=== PATIENT | male | born 1975 | race Caucasian/White ===

== ENCOUNTER 2017-05-02 07:50 | Day surgery (SDC) | payer OTHER ==
[~2017-05-02] VITALS: Ht 188 cm; Wt 88.5 kg
[2017-05-02] VITALS (11 sets, daily range): BP systolic 111–145; BP diastolic 79–93
[~2017-05-02 07:50] MED LIST: FLONASE ALLERG9.9 ML NASAL; TYLENOL EXTRA500 MG ORAL; ZYRTEC-D TABLE1 EACH ORAL
[2017-05-02] MEDS ORDERED: fentaNYL 100 mcg/2 mL IV ONE (07:51)
[2017-05-02] MEDS ORDERED: NS Irrig 2000ml IRRIG ONE (07:51)
[2017-05-02] MEDS ORDERED: Propofol 200mg/20ml IV ONE (07:51)
[2017-05-02] MEDS ORDERED: Midazolam 2mg/2ml Inj ONE (07:51)
[2017-05-02] MEDS ORDERED: LR 1000ml ONE (07:51)
--- NOTE | 2017-05-02 09:14 | Pre-Procedure Note/Attestation ---
Pre-Procedure Note/Attestation Complete Prior to Procedure Planned Procedure: right Procedure Narrative: Right knee arthroscopy with partial menisectomy Indications for Procedure Pre-Operative Diagnosis: Right knee meniscus tear Attestation I attest that I discussed the nature of the procedure; its benefits; risks and complications; and alternatives (and the risks and benefits of such alternatives ), prior to the procedure, with the patient (or the patient's legal field marketing representative). I attest that, if there was a reasonable possibility of needing a blood transfusion, the patient (or the patient's legal field marketing representative) was given the [facility] standardized written summary, pursuant to the [place] Blood Safety Act ([place] Health and Safety Code # 1645, as amended). I attest that I re-evaluated the patient just prior to the surgery and that there has been no change in the patient's H&P, except as documented below: Toni Mason MD May 02, 2017 09:14
[2017-05-02] MEDS ORDERED: Norco 5mg/325mg tab ORAL PRN (09:15)
[2017-05-02] MEDS ORDERED: EPINEPHrine 1mg/1ml Amp ONE (09:15)
[2017-05-02] MEDS ORDERED: HYDROmorphone 1mg/ml Carpuject SUBQ PRN (09:15)
[2017-05-02] MEDS ORDERED: Tylenol #3 tab (300mg/30mg) ORAL PRN (09:15)
[2017-05-02] MEDS ORDERED: D5 1/2NS 1,000 ML IV SCH (09:15)
[2017-05-02] MEDS ORDERED: Ropivacaine 5mg/ml Vial 30ml INJ ONE ×2 (09:15→09:57)
[2017-05-02] MEDS ORDERED: Bupivacaine 0.25% Inj 30ml INJ ONE (09:15)
[2017-05-02] MEDS ORDERED: Meperidine 50mg/ml Inj(FOR RIGORS ONLY) IVP ONE (10:00)
[2017-05-02] MEDS ORDERED: Hydromorphone 0.5mg/0.5ml inj IVP PRN (10:00)
[2017-05-02] MEDS ORDERED: LR 1000ml 1,000 ML IVLG SCH (10:00)
[2017-05-02] MEDS ORDERED: LR 1000ml 1,000 ML IV SCH (10:00)
--- NOTE | 2017-05-02 10:05 | Anethesia Preoperative Eval ---
Anesthesia Pre-op PMH/ROS General Date of Evaluation: May 02, 2017 Time of Evaluation: 09:20 Anesthesiologist: Ramila ASA Score: ASA 1 Mallampati Score Class I : Soft palate, uvula, fauces, pillars visible Class II: Soft palate, uvula, fauces visible Class III: Soft palate, base of uvula visible Class IV: Only hard plate visible Mallampati Classification: Class II Surgeon: Marlon Diagnosis: Meniscus tear Surgical Procedure: Right knee scope, partial meniscectomy Family History: no anesthesia problems Allergies: Coded Allergies: No Known Allergies (Unverified , 05/02/17) Medications: see eMAR Past Medical History Cardiovascular: Denies: HTN, CAD, MA, valve dz, arrhythmia, other Pulmonary: Denies: asthma, COPD, JAREK, other Gastrointestinal/Genitourinary: Denies: GERD, CRI, ESRD, other Neurologic/Psychiatric: Denies: dementia, CVA, depression/anxiety, TIA, other Endocrine: Denies: DM, hypothyroidism, steroids, other HEENT: Denies: cataract (L), cataract (R), glaucoma, SELDOVIA (L), SELDOVIA (R), other Hematology/Immune: Denies: anemia, DVT, bleeding disorder, other Musculoskeletal/Integumentary: Denies: OA, RA, DJD, DDD, edema, other PMH Narrative: Denies significant PMH PSxH Narrative: Herniorrhaphy Anesthesia Pre-op Phys. Exam Physician Exam Last Vital Signs Date Time Temp Pulse Resp B/P (MAP) Pulse Ox O2 Delivery O2 Flow Rate FiO2 05/02/17 08:18 97.0 60 18 145/81 99 Room Air 97.0 Constitutional: NAD Neurologic: CN 2-12 intact Cardiovascular: RRR, no M/R/G Respiratory: CTA Gastrointestinal: S/NT/ND Airway Exam Mallampati Score: Class II MO: full ROM: full Teeth: intact Anesthesia Pre-op A/P Labs WNL Risk Assessment & Plan Assessment: Healthy male for right knee scope Plan: GA, LMA Status Change Before Surgery: No Pre-Antibiotics Drug: Ancef Given Within 1 Hr of Incision: Yes Time Given: 09:45 GOYO POWELL M.D. May 02, 2017 10:05
--- NOTE | 2017-05-02 10:06 | Immediate Post-Op Evaluation ---
Immediate Post-Op Evalulation Immediate Post-Op Evalulation Procedure: Right knee scope, partial meniscectomy Date of Evaluation: May 02, 2017 Time of Evaluation: 10:40 IV Fluids: 700 Blood Pressure Systolic: 126 Blood Pressure Diastolic: 93 Pulse Rate: 57 Respiratory Rate: 16 O2 Sat by Pulse Oximetry: 96 Temperature (Fahrenheit): 98.7 Pain Score (1-10): 0 Nausea: No Vomiting: No Complications No complication Patient Status: awake, patent, none Hydration Status: adequate Drug: Ancef Given Within 1 Hr of Incision: Yes Time Given: 09:45 GOYO POWELL M.D. May 02, 2017 10:06
--- NOTE | 2017-05-02 10:34 | 48 Hour Post Anesthesia Eval ---
Post Anesthesia Evaluation Procedure: Right knee scope, partial meniscectomy Date of Evaluation: May 02, 2017 Time of Evaluation: 11:00 Blood Pressure Systolic: 130 0: 95 Pulse Rate: 60 Respiratory Rate: 18 O2 Sat by Pulse Oximetry: 97 Airway: patent Nausea: No Vomiting: No Pain Intensity: 0 Hydration Status: adequate Cardiopulmonary Status: stable Mental Status/LOC: patient returned to baseline Follow-up Care/Observations: As per surgery Post-Anesthesia Complications: No anesthetic complication Follow-up care needed: N/A GOYO POWELL M.D. May 02, 2017 10:33
--- NOTE | 2017-05-02 13:00 | Operative Note - Dictated ---
DATE OF OPERATION: 05/02/2017 SURGEON: Toni Mason M.D. INSPECTOR [employer] PRODUCTS: None. ANESTHESIA: General plus local. COMPLICATIONS: None. ANTIBIOTICS: Ancef. PREOPERATIVE DIAGNOSES: Right knee: 1. Medial femoral condyle chondrosis. 2. Medial tibial plateau chondrosis. 3. Large macerated complex bucket handle tear of medial meniscus. POSTOPERATIVE DIAGNOSES: Right knee: 1. Medial femoral condyle chondrosis. 2. Medial tibial plateau chondrosis. 3. Large macerated complex bucket handle tear of medial meniscus. PROCEDURES PERFORMED: Right knee arthroscopy with: 1. Partial medial meniscectomy. 2. Medial femoral condyle chondroplasty. 3. Medial tibial plateau chondroplasty. BACKGROUND: The patient has had longstanding knee pain refractory to nonoperative management. All risks, benefits, and alternatives to surgical intervention were discussed in great detail. Risks included, but were not limited to, bleeding, infection, neurovascular injury, need for additional surgical intervention, failure of pain relief, arthrofibrosis, complications of anesthesia, blood clots, stroke, heart attack, potentially . He understood these risks, amongst others including recurrence of meniscus tear and early arthritis, and consent was signed. PROCEDURE IN DETAIL: The patient was brought into the operating room and placed supine on the operating table. The right knee was correctly verified for surgical site and prepped and draped in standard sterile fashion. Examination under anesthesia revealed symmetric range of motion of the contralateral side, no effusion, and no laxity. Anterolateral and anteromedial portals were marked and injected with 20 mL of 0.25% Marcaine and a diagnostic arthroscopy was undertaken. It revealed the followin. Normal suprapatellar pouch. 2. Normal patellofemoral articulation. 3. Normal medial gutter. 4. Normal lateral gutter. 5. Normal lateral compartment. 6. Normal lateral meniscus. 7. Normal ACL. 8. Normal PCL. 9. Large flap tear bucket handle macerated medial meniscus tear extending from the posterior horn to the junction of the anterior and middle horns. 10. Diffuse grade 2 chondrosis with small areas of grade 3 chondrosis medial femoral condyle. 11. Grade 1 chondrosis medial tibial plateau. In the medial compartment, using an up biter, left biter, right biter, a 4.5 mm and 5.5 mm [place], the macerated complex bucket handle tear was resected. Contouring of the remaining meniscus was undertaken using the shaver. A probe was then used to test the stability of the remaining meniscus and it was stable. Chondroplasty was performed on the medial femoral condyle and on the medial tibial plateau to be sure no loose edges would permit mechanical symptoms or break off. All fluid and debris were evacuated from the intra-articular space. A 10 mL of 0.25% Marcaine were injected. The wounds were copiously irrigated and reapproximated using 4-0 Monocryl in a subcuticular fashion. Steri-Strips were used over Mastisol. Dry sterile dressing was applied. A compressive stocking was fitted. He tolerated the procedure well. There were no complications. He was transferred to recovery in good condition. Toni Mason M.D. DR: TESSA JOB#: [id number] CC:
== END 2017-05-02 11:55 | disposition home or self-care (01) ==
LOC: SUR 07:50
DX: S83.211A Bucket-handle tear of medial meniscus, current injury, right knee, initial encounter (principal); M24.10 Other articular cartilage disorders, unspecified site; Z87.891 Personal history of nicotine dependence; K58.9 Irritable bowel syndrome, unspecified; X58.XXXA Exposure to other specified factors, initial encounter; Y93.9 Activity, unspecified; Y92.9 Unspecified place or not applicable
CPT/HCPCS: 29881; J0171; J0690; J2250; J2405; J2704; J2795; J3010; J7120; 94003; 94150